=== PATIENT | male | born 1995 | race African-American/Black ===

== ENCOUNTER 2019-10-26 01:32 | Emergency (ER) | payer MEDICAID ==
[~2019-10-26] VITALS: Ht 175.3 cm; Wt 59.0 kg
[2019-10-26 01:38] VITALS: BP 120/81
[2019-10-26] MEDS ORDERED: IBUPROFEN 600MG TABLET PO ONE (02:00)
== END 2019-10-26 02:52 | disposition home or self-care (01) ==
LOC: ER 01:51
DX: S60.222A Contusion of left hand, initial encounter (principal); S20.212A Contusion of left front wall of thorax, initial encounter; M25.512 Pain in left shoulder; R51 Headache; V49.50XA Passenger injured in collision with unspecified motor vehicles in traffic accident, initial encounter; Y93.89 Activity, other specified; Y92.488 Other paved roadways as the place of occurrence of the external cause
CPT/HCPCS: 71045; 73130; 99284